=== PATIENT | female | born 1985 | race Two or more races ===

== ENCOUNTER 2020-06-07 14:36 | Emergency (ER) | payer OTHER ==
[~2020-06-07] VITALS: Ht 165.1 cm; Wt 64.9 kg
[2020-06-07] MEDS ORDERED: KETO10TA2 PO (20:39)
== END 2020-06-07 21:33 | disposition home or self-care (01) ==
LOC: ER 14:36
DX: R10.31 Right lower quadrant pain (principal); D36.7 Benign neoplasm of other specified sites